=== PATIENT | female | born 1960 | race American Indian/Alaskan Native ===

== ENCOUNTER 2016-09-18 17:08 | Emergency (ER) | payer OTHER ==
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
[2016-09-18 20:50] VITALS: BP 169/114
== END 2016-09-18 21:10 | disposition home or self-care (01) ==
LOC: ED 17:08
DX: S13.4XXA Sprain of ligaments of cervical spine, initial encounter (principal); S39.012A Strain of muscle, fascia and tendon of lower back, initial encounter; I10 Essential (primary) hypertension; D25.9 Leiomyoma of uterus, unspecified; Z88.8 Allergy status to other drugs, medicaments and biological substances; V89.2XXA Person injured in unspecified motor-vehicle accident, traffic, initial encounter; Y93.89 Activity, other specified; Y99.9 Unspecified external cause status; Y92.410 Unspecified street and highway as the place of occurrence of the external cause

== ENCOUNTER 2017-01-26 14:43 | Emergency (ER) | payer OTHER ==
[2017-01-26 14:59] VITALS: BP 171/110
[2017-01-26] MEDS ORDERED: COZAAR PO ONE (15:08)
[2017-01-26] MEDS ORDERED: TYLENOL PO ONE (15:08)
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
== END 2017-01-26 18:09 | disposition left against medical advice (07) ==
LOC: ED 14:43
DX: M54.2 Cervicalgia (principal); I10 Essential (primary) hypertension; Z88.8 Allergy status to other drugs, medicaments and biological substances; V49.49XA Driver injured in collision with other motor vehicles in traffic accident, initial encounter; Y93.89 Activity, other specified; Y99.8 Other external cause status; Y92.488 Other paved roadways as the place of occurrence of the external cause

== ENCOUNTER 2017-04-22 15:49 | Outpatient (CLI) | payer OTHER | END 2017-04-22 15:50 | disposition home or self-care (01) | LOC: LABHHL 15:49 | PROVIDERS: ATTEND Surgery | DX: D24.1 Benign neoplasm of right breast (principal); I10 Essential (primary) hypertension | CPT/HCPCS: 88305 ==